=== PATIENT | female | born 2000 | race Native Hawaiian/Other Pacific Islander ===

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

== ENCOUNTER 2021-10-15 23:16 | Emergency (ER) | payer OTHER, MEDICAID, SELFPAY ==
[2021-10-15 23:31] VITALS: BP 119/80; PULSE 96; RESP 18; TEMP 36.2; O2SAT 98
--- NOTE | 2021-10-16 03:23 | ED_ITS ---
HPI - Headache General Chief Complaint: Headache Stated Complaint: headache x1 day/low on meds Time Seen by Provider: 10/16/21 03:23 Mode of arrival: Ambulatory History of Present Illness HPI Narrative: 21-year-old type 1 diabetic presents with 24 hours of severe frontal headache described as ?worse than the usual migraine?. She describes her body being hot, mild upper respiratory symptoms and a slight cough for the last day. Her blood sugars have been slightly elevated in the 300s. She also notes that her next appointment with her oil well logger at [facility] is in November and she is hoping for a refill of her Humalog Pen until that appointment. She reports that her last menstrual cycle was approximately a month ago, no vaginal discharge, no abdominal pain no vomiting. She has had no chest pain palpitations. No visual changes but does note that she is sensitive to light. Related Data Home Medications Medication Instructions Recorded Confirmed insulin lispro 100 unit/mL 12 unit SQ TID ##0 07/04/17 05/24/19 subcutaneous solution (Humalog U-100 Insulin) metformin 500 mg tablet,extended 500 mg PO Q DAY ##0 07/04/17 05/24/19 release 24 hr (Glucophage XR) insulin glargine 100 unit/mL 2 unit SUBCUT DAILY 01/21/18 05/24/19 subcutaneous solution (Lantus U-100 Insulin) Previous Rx's Medication Instructions Recorded benzonatate 200 mg capsule 200 mg PO BID-TID PRN cough #14 10/16/21 caps insulin lispro 100 unit/mL 1 sliding scale dose SUBCUT 10/16/21 subcutaneous pen (Humalog KwikPen USEASDIRECTD #15 mL (U-100) Insulin) nirmatrelvir 300 mg (150 mg x See Rx Instructions PO .COMPLEX 10/16/21 2)-ritonavir 100 mg tablet (EUA) #30 tabs (Paxlovid 300 mg () ondansetron 4 mg disintegrating 4 mg PO Q8H PRN nausea and 10/16/21 tablet vomiting #14 tabs Allergies Allergy/AdvReac Type Severity Reaction Status Date / Time No Known Drug Allergies Allergy Verified 05/24/19 08:58 Review of Systems Review of Systems Narrative: Remainder of complete review of systems is otherwise unremarkable except for that included in the HPI. Patient History Medical History (Updated 10/16/21 @ 04:58 by Kristy Hernandez MD) Type 1 diabetes Social History Smoking Status: Never smoker Smoking Status: Never smoker alcohol intake frequency: a few times a month Substance Use Type: does not use Exam Initial Vital Signs Initial Vital Signs: Vital Signs Temperature 97.2 F L 10/15/21 23:31 Pulse Rate 96 H 10/15/21 23:31 Respiratory Rate 18 10/15/21 23:31 Blood Pressure 119/80 10/15/21 23:31 Pulse Oximetry 98 10/15/21 23:31 Oxygen Delivery Method 10/15/21 23:31 General: Appears fatigued, in mild distress with her eyes closed and hand over her forehead, Able to give a complete and coherent history. Well-nourished well-developed HEENT: Moist mucous membranes, normal sclera with reactive pupils, mild injection bilaterally Neck: No cervical adenopathy, supple Respiratory: Lungs are clear to auscultation, no wheezing no rales no rhonchi. Full and symmetrical air movement Cardiac: Regular rate and rhythm no murmurs no bruits Abdomen: Soft, nontender, good bowel tones, no flank pain Skin: Warm and dry, no rashes Neurologic: Grossly neurologically intact with no obvious asymmetries or abnormalities Extremities: No trauma, well perfused Psych: Cooperative, appropriate insight and affect Course Orders Ordered: ED Orders 10/16/21 03:50 Complete Blood Count AUTO DIFF Stat Comprehensive Metabolic Panel Stat Ketones (Beta-Hydroxybutyrate) Stat Lipase Stat 10/16/21 04:10 COVID19 -Nasal RAPID/Pre-Proc Stat Discontinued Medications Sodium Chloride (Normal Saline 0.9%) 1,000 mls @ 1,000 mls/hr IV BOLUS ONE Stop: 10/16/21 04:39 Last Admin: 10/16/21 04:05 Dose: 1,000 mls/hr Documented By: DONNELL Ketorolac Tromethamine (Ketorolac 30 Mg/Ml Vial) 15 mg IV NOW ONE Stop: 10/16/21 03:41 Last Admin: 10/16/21 04:05 Dose: 15 mg Documented By: DONNELL Ondansetron HCl (Ondansetron 4 Mg/2 Ml Inj) 4 mg IV NOW ONE Stop: 10/16/21 03:41 Last Admin: 10/16/21 04:05 Dose: 4 mg Documented By: AP Vital Signs Vital signs: Vital Signs - 8 hr 10/15/21 23:31 10/16/21 04:19 Temperature 97.2 F L Pulse Rate 96 H 88 Respiratory Rate 18 18 Blood Pressure 119/80 123/70 Pulse Oximetry 98 98 Oxygen Delivery Method Room Air Room Air MDM - Headache Lab Data Result diagrams: 10/16/21 03:50 10/16/21 03:50 Labs: Lab Results 10/16/21 10/16/21 10/16/21 Range/Units 03:50 03:50 04:10 WBC 6.2 (4.5-11.0) X10^3/uL RBC 5.20 (4.0-5.2) X10^6/uL Hgb 15.1 (12.0-16.0) g/dL Hct 45.4 (36-46) % MCV 87.5 (80-100) fL MCH 29.1 (26-34) PG MCHC 33.3 (30-36) % RDW 13.1 (11.6-14.8) % Plt Count 281 (150-400) X10^3/uL Neut % (Auto) 65.9 (50-75) % Lymph % (Auto) 19.8 L (25-40) % Jay % (Auto) 11.4 (3-14) % Eos % (Auto) 1.7 L (2-4) % Baso % (Auto) 1.2 (0-2) % Neut # (Auto) 4100 (8575-3232) /uL Lymph # (Auto) 1200 (3104-3632) /uL Jay # (Auto) 700 (0-900) /uL Eos # (Auto) 100 (0-450) /uL Baso # (Auto) 100 (0-100) /uL Sodium 134 L (137-145) mmol/L Potassium 3.8 (3.4-5.1) mmol/L Chloride 98 (98-107) mmol/L Carbon Dioxide 23 (22-32) mmol/L BUN 11 (7-17) mg/dL Creatinine 0.50 L (0.52-1.04) mg/dL Estimated GFR > 60 (>60) mL/min BUN/Creatinine Ratio 22.0 (6-22) Glucose 277 H (70-100) mg/dL Calcium 9.5 (8.4-10.2) mg/dL Total Bilirubin 0.6 (0.2-1.3) mg/dL AST 62 H (14-36) IU/L ALT 51 H (<35) IU/L Alkaline Phosphatase 77 (38-126) U/L Total Protein 8.4 H (6.3-8.2) g/dL Albumin 4.8 (3.5-5.0) g/dL Globulin 3.6 (1.7-4.1) g/dL Albumin/Globulin Ratio 1.3 (1.0-2.8) Lipase 101 (23-300) U/L Ketones 1.24 H (<0.27) mmol/L SARS-CoV-2 (PCR) Positive H (Negative) MDM Narrative Medical decision making narrative: 21-year-old type 1 diabetic comes in complaining of headache that is worse and different than migraine along with upper respiratory symptoms. She is COVID positive. She is not hypoxic and does not have significant cough and will not need to be hospitalized for this. He is given fluids, Toradol, Zofran and this did help significantly with headaches. She has noted that her blood sugars have been slightly higher over the last couple of days. Talked about increased sliding-scale insulin as needed when she is sick. She stated that she needs who Humalog Pen refilled so will do this as well. There is no evidence of acute DKA, she is able to keep fluids in, headache is slightly improved with the Toradol medications are refilled and she has follow-up with her to hospital oil well logger in mid November. She will be safe for home discharge Discharge Plan Departure Patient Disposition: Home Clinical Impression: COVID-19 Instructions: DI for COVID-19 (Suspected or Confirmed ) Activity Restrictions/Additional Instructions: Thank you for coming in today You have COVID. This is likely the cause of the headache, the mild cough in the upper respiratory symptoms. I have given you a prescription for Zofran/ondansetron to help with nausea Tessalon Perles to help with cough Paxlovid, the antiviral medication that can be helpful in preventing worsening COVID symptoms Joelle also refilled your humalog pen [facility] Prescriptions: New Paxlovid (EUA) 150 mg x 2- 100 mg tablet See Rx Instructions .ROUTE .COMPLEX Qty: 30 0RF Rx Instructions: take TWO 150 mg tablets of nirmatrelvir with ONE 100 mg tablet of ritonavir twice daily for 5 days benzonatate 200 mg capsule 200 mg PO BID-TID PRN (Reason: cough) Qty: 14 0RF insulin lispro [Humalog KwikPen Insulin] 100 unit/mL insulin pen 1 sliding scale dose SUBCUT USEASDIRECTD Qty: 15 3RF ondansetron 4 mg tablet,disintegrating 4 mg PO Q8H PRN (Reason: nausea and vomiting) Qty: 14 0RF No Action insulin glargine [Lantus U-100 Insulin] 100 unit/mL solution 2 unit SUBCUT DAILY metformin [Glucophage XR] 500 MG tablet extended release 24 hr 500 mg PO Q DAY Qty: 0 insulin lispro [Humalog U-100 Insulin] 100 UNIT/1 ML solution 12 unit SQ TID Qty: 0
[2021-10-16] MEDS: ONDANSETRON 4 MG/2 ML INJ IV (04:05)
[2021-10-16] MEDS: SODIUM CHLORIDE 0.9% 1,000 ML 1000 ML IV (04:05)
[2021-10-16] MEDS: KETOROLAC 30 MG/ML VIAL 15 MG IV (04:05)
[2021-10-16 04:19] VITALS: BP 123/70; PULSE 88; RESP 18; O2SAT 98
[2021-10-16 04:19] LABS: Add Manual Diff / Slide Review NO; Basophils Absolute Auto 100 /uL (0-100); Basophils Percent Auto 1.2 % (0-2); Eosinophils Absolute Auto 100 /uL (0-450); Eosinophils Percent Auto 1.7 % (2-4); Hematocrit 45.4 % (36-46); Hemoglobin 15.1 g/dL (12.0-16.0); Lymphocytes Absolute Auto 1200 /uL (1100-4500); Lymphocytes Percent Auto 19.8 % (25-40); Mean Corpuscular HGB Conc 33.3 % (30-36); Mean Corpuscular Hemoglobin 29.1 PG (26-34); Mean Corpuscular Volume 87.5 fL (80-100); Monocytes Absolute Auto 700 /uL (0-900); Monocytes Percent Auto 11.4 % (3-14); Neutrophils Absolute Auto 4100 /uL (1500-7000); Neutrophils Percent Auto 65.9 % (50-75); Platelet Count 281 X10^3/uL (150-400); Red Cell Distribution Width 13.1 % (11.6-14.8); White Blood Cell Count 6.2 X10^3/uL (4.5-11.0)
[2021-10-16 04:22] LABS: Alanine Aminotransferase 51 IU/L (<35); Albumin 4.8 g/dL (3.5-5.0); Albumin Globulin Ratio 1.3 (1.0-2.8); Alkaline Phosphatase 77 U/L (38-126); Aspartate Aminotransferase 62 IU/L (14-36); Bilirubin Total 0.6 mg/dL (0.2-1.3); Blood Urea Nitrogen 11 mg/dL (7-17); Calcium 9.5 mg/dL (8.4-10.2); Carbon Dioxide 23 mmol/L (22-32); Chloride 98 mmol/L (98-107); Estimated Glomerular Filt Rate > 60 mL/min (>60); Globulin 3.6 g/dL (1.7-4.1); Glucose 277 mg/dL (70-100); HEMOLYSIS 34 (0-50); Lipase 101 U/L (23-300); Potassium 3.8 mmol/L (3.4-5.1); Sodium 134 mmol/L (137-145); Total Protein 8.4 g/dL (6.3-8.2)
[2021-10-16 04:25] LABS: Ketones (Beta-Hydroxybutyrate) 1.24 mmol/L (<0.27)
[2021-10-16 04:34] LABS: COVID19 -Nasal RAPID POSITIVE (Negative)
[2021-10-16 06:03] VITALS: BP 109/63; PULSE 76; RESP 18; O2SAT 98
== END 2021-10-16 06:04 | disposition home or self-care (01) ==
PROVIDERS: Emergency Provider Emergency Medicine
DX: U07.1 COVID-19 (principal)
CPT/HCPCS: 36415; 80053; 82009; 83690; 85025; 87635; 96361; 96374; 96375; 99284; C9803; J1885; J2405

== ENCOUNTER → 2022-11-19 10:23 | Outpatient (CLI) | payer OTHER, SELFPAY ==
--- NOTE | 2022-11-19 10:25 | DI.RAD.S_ITS ---
PROCEDURE: XR FOOT LT MIN 3V INDICATIONS: Left foot pain TECHNIQUE: 3 views of the foot were acquired. COMPARISON: None. FINDINGS: Bones: No fractures or dislocations. No suspicious bony lesions. Soft tissues: No tibiotalar joint effusion. Achilles tendon appears normal. IMPRESSION: Intact left foot. Dictated by: Eleonora Veronica M.D. on 11/19/2022 at 13:26 Approved by: Eleonora Veronica M.D. on 11/19/2022 at 13:27
--- NOTE | 2022-11-19 10:25 | DI.RAD.S_ITS ---
PROCEDURE: XR TOE LT MIN 2V INDICATIONS: Left foot pain TECHNIQUE: Three views of the left great toe(s) acquired. COMPARISON: None. FINDINGS: Bones: Questionable minimally displaced corner fracture at the lateral 1st distal phalanx seen on a single view only. Alignment is normal. Soft tissues: No suspicious soft tissue densities. IMPRESSION: Questionable minimally displaced corner fracture off the lateral 1st distal phalanx. Dictated by: Eleonora Veronica M.D. on 11/19/2022 at 13:27 Approved by: Eleonora Veronica M.D. on 11/19/2022 at 13:38
== END ==
PROVIDERS: Referring Provider Nurse Practitioner Family; Visit Provider Nurse Practitioner Family
DX: S90.122A Contusion of left lesser toe(s) without damage to nail, initial encounter (principal); X58.XXXA Exposure to other specified factors, initial encounter
CPT/HCPCS: 73630; 73660